=== PATIENT | male | born 1990 | race Caucasian/White ===

== ENCOUNTER 2023-11-12 09:39 | Outpatient (AMB) | payer OTHER, SELFPAY ==
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
[2023-11-12 09:44] VITALS: BMI 25.8
== END 2023-11-12 11:36 | disposition home or self-care (01) ==
PROVIDERS: PCP Nurse Practitioner Family; Visit Provider Orthopaedic Surgery
DX: S70.12XA Contusion of left thigh, initial encounter (principal)
CPT/HCPCS: 99204

== ENCOUNTER → 2023-11-12 09:39 | Outpatient (BNVA) | payer OTHER, SELFPAY | PROVIDERS: PCP Nurse Practitioner Family; Visit Provider Orthopaedic Surgery ==

== ENCOUNTER 2024-03-13 15:00 | Outpatient (RCR) | payer OTHER, SELFPAY | END 2024-06-16 12:00 | disposition home or self-care (01) | LOC: HO.OT 15:00 | PROVIDERS: PCP Nurse Practitioner Family; Visit Provider Orthopaedic Surgery | DX: I89.0 Lymphedema, not elsewhere classified (principal); T14.8XXA Other injury of unspecified body region, initial encounter | CPT/HCPCS: 97110; 97140; 97166; 97535 ==